=== PATIENT | female | born 1945 | race Two or more races ===

== ENCOUNTER 2022-11-20 06:36 | Day surgery (SDC) | payer OTHER ==
[~2022-11-20] VITALS: Ht 162.6 cm; Wt 52.2 kg
[~2022-11-20 06:36] MED LIST: ALPRAZOLAM XR1 MG PO; ATENOLOL50 MG PO; CYMBALTA60 MG PO; TRAZODONE HCL100 MG PO
[2022-11-20] MEDS ORDERED: NEURONTIN300 MG PO (15:02)
[2022-11-20] MEDS ORDERED: ULTRACET PO (15:02)
[2022-11-20] MEDS ORDERED: POLY119PG PO (15:03)
== END 2022-11-20 18:20 | disposition home or self-care (01) ==
LOC: CIR.AMB 06:36
PROVIDERS: ATTEND Surgery
DX: K40.90 Unilateral inguinal hernia, without obstruction or gangrene, not specified as recurrent (principal); K42.0 Umbilical hernia with obstruction, without gangrene; F17.210 Nicotine dependence, cigarettes, uncomplicated; Z91.013 Allergy to seafood; Z20.822 Contact with and (suspected) exposure to COVID-19